=== PATIENT | female | born 1975 | race Caucasian/White ===

== ENCOUNTER 2016-08-02 09:57 | Emergency (ER) | payer BC ==
[~2016-08-02] VITALS: Ht 172.7 cm; Wt 72.6 kg
[2016-08-02 10:05] VITALS: BP 147/98
== END 2016-08-02 11:35 | disposition home or self-care (01) ==
LOC: ER 09:59
DX: S80.01XA Contusion of right knee, initial encounter (principal); M25.561 Pain in right knee; W10.9XXA Fall (on) (from) unspecified stairs and steps, initial encounter; Y93.89 Activity, other specified; Y92.89 Other specified places as the place of occurrence of the external cause; Y99.8 Other external cause status
CPT/HCPCS: 93971; 99284; A4606; Z7610

== ENCOUNTER 2016-09-06 20:14 | Emergency (ER) | payer SELFPAY ==
[~2016-09-06] VITALS: Ht 172.7 cm; Wt 72.6 kg
--- NOTE | 2016-09-06 20:30 | NUR ---
TO BED 5 A 41 YO FEMALE BIBSELF WITH C/O "RT HAND PAIN/SWELLING X2 DAYS; ON CIPRO" PATIENT IS AAOX4, AMBULATORY WITH STEADY GAIT. NO S/S OF ACUTE DISTRESS. INITIATED COMFORT MEASURES. AWAITING FOR ER MD GONZALES.
--- NOTE | 2016-09-06 20:39 | NUR ---
Dr Joseph at bedside for eval.
[2016-09-06] MEDS ORDERED: ONDANSETRON 4 MG TAB.RAPDIS ONE (20:48)
[2016-09-06] MEDS ORDERED: HYDROCODONE/APAP 10/325MG 1 EA TABLET ONE (20:49)
[2016-09-06 20:59] LABS: BASOPHILS % (AUTO) 0.4 % (0.0-2.0); EOSINOPHILS # (AUTO) 0.1 /CMM (0.0-0.7); EOSINOPHILS % (AUTO) 1.4 % (0.0-6.0); HEMATOCRIT 40 % (33-45); HEMOGLOBIN 13.4 g/dL (11.5-14.8); LYMPHOCYTES # (AUTO) 2.3 /CMM (0.8-4.8); LYMPHOCYTES % (AUTO) 26.7 % (20.0-44.0); MEAN CORPUSCULAR HEMOGLOBIN 31 PG (26.0-33.0); MEAN CORPUSCULAR HGB CONC 33 g/dl (31.0-36.0); MEAN CORPUSCULAR VOLUME 94 fL (82-100); MONOCYTES # (AUTO) 0.6 /CMM (0.1-1.30); NEUTROPHILS # (AUTO) 5.6 /CMM (1.8-8.9); NEUTROPHILS % (AUTO) 64.5 % (43.0-81.0); PLATELET COUNT (AUTO) 167 /CMM (150-450); RDW COEFFICIENT OF VARIATION 11.4 (11.5-15.0); WHITE BLOOD COUNT (AUTO) 8.6 K/uL (4.3-11.0)
[2016-09-06] MEDS ORDERED: ONDANSETRON 4 MG TAB.RAPDIS PO ONE (21:00)
[2016-09-06] MEDS ORDERED: HYDROCODONE/APAP 10/325MG 1 EA TABLET PO ONE (21:00)
[2016-09-06 21:09] LABS: CALCIUM, SERUM 8.5 mg/dL (8.5-10.1); CREATININE 1.6 mg/dL (0.6-1.3); POTASSIUM 3.7 mmol/L (3.5-5.1)
--- NOTE | 2016-09-06 21:40 | NUR ---
Patient discharged to home in stable condition. Written and verbal after care instructions given. Patient verbalizes understanding of instruction. Patient is ambulatory with steady gait. No further complaints.
[2016-09-06 21:43] VITALS: BP 128/82
== END 2016-09-06 21:43 | disposition home or self-care (01) ==
LOC: ER 20:16
DX: L03.113 Cellulitis of right upper limb (principal); Z88.2 Allergy status to sulfonamides
CPT/HCPCS: 29125; 36415; 80048; 85025; 99284; A4606; Q0162; Z7610